=== PATIENT | female | born 1970 | race Caucasian/White ===

== ENCOUNTER 2017-02-26 20:00 | Emergency (ER) | payer MEDICAID ==
[~2017-02-26] VITALS: Ht 165.1 cm; Wt 63.6 kg
[2017-02-26] MEDS ORDERED: LIDOCAINE HCL 1% 10 ML VIAL INJ ONE (21:00)
[2017-02-26] MEDS ORDERED: SULFAMETHOX/TRIMETH DS 800-160 MG/TABLET PO ONE (21:15)
[2017-02-26 22:05] VITALS: BP 122/76
== END 2017-02-26 22:08 | disposition home or self-care (01) ==
LOC: EMS 20:05
DX: L03.012 Cellulitis of left finger (principal)
CPT/HCPCS: 10060; 99283; J3490